=== PATIENT | female | born 1965 | race Caucasian/White ===

== ENCOUNTER → 2017-01-15 | Outpatient (CLI) | payer OTHER ==
[~2017-01-15] MED LIST: FISHOIL; GLUCOPHAGE500 MG; IBUPROFEN; LISINOPRIL5 MG; MULTIVITAMINS; OMEPRAZOLE40 MG; SIMVASTATIN20 MG; VICTOZA0.6 MG/0.1; VITAMIN D 5050000 I1; VITAMIN D1000 UNI1; ZYRTEC10 M2
== END ==
LOC: RAD 14:15
DX: Z12.31 Encounter for screening mammogram for malignant neoplasm of breast (principal)

== ENCOUNTER → 2020-09-19 | Outpatient (CLI) | payer OTHER | LOC: BC 08:55 | PROVIDERS: ATTEND Obstetrics & Gynecology | DX: Z12.31 Encounter for screening mammogram for malignant neoplasm of breast (principal) ==